=== PATIENT | male | born 1990 | race African-American/Black ===

== ENCOUNTER 2019-09-16 23:39 | Inpatient (IN) | payer MEDICAID, OTHER ==
[~2019-09-16] VITALS: Ht 188 cm; Wt 93.9 kg
[2019-09-16 23:54] LABS: BASOPHILS % (AUTO) 0.5 % (0.0-2.0); EOSINOPHILS % (AUTO) 0.8 % (1.0-6.0); HEMATOCRIT 41.7 % (41-53); HEMOGLOBIN 13.5 g/dL (13.5-17.5); LYMPHOCYTES # (AUTO) 3.6 K/uL (1.0-4.8); LYMPHOCYTES % (AUTO) 24.7 % (22.0-44.0); MEAN CORPUSCULAR HEMOGLOBIN 31.2 pg (26.0-34.0); MEAN CORPUSCULAR HGB CONC 32.3 G/dL (31.0-37.0); MEAN CORPUSCULAR VOLUME 97 fL (80-100); MONOCYTES # (AUTO) 1.2 K/uL (0.1-1.0); MONOCYTES % (AUTO) 8.3 % (2.0-9.0); NEUTROPHILS # (AUTO) 9.6 K/uL (1.8-7.7); NEUTROPHILS % (AUTO) 65.7 % (40.0-70.0); PLATELET COUNT (AUTO) 318 K/uL (150-450); RED BLOOD CELL COUNT(AUTO) 4.32 MIL/uL (4.50-5.90); RED CELL DISTRIBUTION WIDTH 15.6 % (11.5-14.5)
[2019-09-17 00:04] LABS: ANION GAP 7 mmol/L (8-16); CALCIUM, TOTAL 8.9 mg/dL (8.8-10.5); CARBON DIOXIDE 26 mmol/L (22-29); CHLORIDE 107 mmol/L (98-107); CREATININE 0.82 mg/dL (0.60-1.30); GLOMERULAR FILTR. RATE CALC > 60 mL/min (>60); GLUCOSE,RANDOM 117 mg/dL (70-110); POTASSIUM 4.3 mmol/L (3.5-5.1); SODIUM SERUM 140 mmol/L (136-145); UREA NITROGEN, BLOOD 16 mg/dL (7-18)
[2019-09-17 00:10] LABS: ALANINE AMINOTRANSFERASE 22 U/L (12-78); ALBUMIN 3.7 g/dL (3.4-5.0); ALKALINE PHOSPHATASE 64 U/L (46-116); ASPARTATE AMINOTRANSFERASE 12 U/L (15-37); BILIRUBIN,TOTAL 0.2 mg/dL (0.1-1.0); TOTAL PROTEIN, SERUM 7.6 g/dL (6.4-8.2)
[2019-09-17 01:15] LABS: AMPHET/METH SCREEN,URINE NEGATIVE (NEGATIVE); BARBITURATE SCREEN, URINE NEGATIVE (NEGATIVE); BENZODIAZEPINES SCREEN,URINE NEGATIVE (NEGATIVE); CANNABINOID SCREEN,URINE POSITIVE (NEGATIVE); COCAINE SCREEN,URINE NEGATIVE (NEGATIVE); METHADONE SCREEN, URINE NEGATIVE (NEGATIVE); OPIATE SCREEN,URINE NEGATIVE (NEGATIVE)
[2019-09-17 01:17] LABS: PHENCYCLIDINE SCREEN,URINE NEGATIVE (NEGATIVE)
[2019-09-17 04:17] VITALS: BP 101/65
[2019-09-17 05:20] VITALS: BP 101/65
[2019-09-17] MEDS ORDERED: NICOTINE 14 MG/24 HOUR PATCH TD SCH (09:00)
[2019-09-17 09:18] VITALS: BP 116/47
[2019-09-17] MEDS ORDERED: ONDANSETRON HCL 4 MG TABLET PO PRN (10:30)
[2019-09-17] MEDS ORDERED: ALBUTEROL SULFATE HFA 90 MCG/PUFF 8 GM INHALER IH PRN (10:30)
[2019-09-17] MEDS ORDERED: PETROLATUM,WHITE 28 GM JELLY TP PRN (10:30)
[2019-09-17] MEDS ORDERED: MAG HYDROX/AL HYDROX/SIMETH ES 30 ML SUSPENSION UDCUP PO PRN (10:30)
[2019-09-17] MEDS ORDERED: DOCUSATE SODIUM 100 MG CAPSULE PO PRN (10:30)
[2019-09-17] MEDS ORDERED: CloNIDine HCL 0.1 MG TABLET PO PRN (10:30)
[2019-09-17] MEDS ORDERED: MAGNESIUM HYDROXIDE SUSPENSION 30 ML UDCUP PO PRN (10:30)
[2019-09-17] MEDS ORDERED: ACETAMINOPHEN 325 MG TABLET PO PRN (10:30)
[2019-09-17] MEDS ORDERED: GuaiFENesin/D-METHORPHAN [SUGAR-FREE] 200-20MG/10 ML SYRUP UDCUP PO PRN (10:30)
[2019-09-17] MEDS ORDERED: IBUPROFEN 400 MG TABLET PO PRN (10:30)
[2019-09-17] MEDS ORDERED: LOPERAMIDE HCL 2 MG CAPSULE PO PRN (10:30)
[2019-09-17] MEDS: RisperiDONE 1 MG TABLET PO SCH (12:26)
[2019-09-17] MEDS: SERTRALINE HCL 50 MG TABLET PO SCH (12:26)
[2019-09-17] MEDS: NICOTINE 14 MG/24 HOUR PATCH TD PRN (15:59)
[2019-09-17 16:38] VITALS: BP 114/78
[2019-09-17] MEDS: LORazepam 2 MG TABLET PO PRN ×2 (17:14→23:57)
[2019-09-17] MEDS: HALOPERIDOL 5 MG TABLET PO PRN (19:27)
[2019-09-17] MEDS ORDERED: LORazepam 2 MG/ML VIAL IM ONE (20:00)
[2019-09-17] MEDS ORDERED: DiphenhydrAMINE HCL 50 MG/ML VIAL IM ONE (20:00)
[2019-09-17] MEDS: ZOLPIDEM TARTRATE 10 MG TABLET PO PRN (21:27)
[2019-09-18 04:05] VITALS: BP 114/70
[2019-09-18] MEDS ORDERED: PNEUMOCOCCAL VACCINE POLYVALENT 0.5 ML VIAL [PPSV23] IM ONE (04:45)
[2019-09-18] MEDS: SERTRALINE HCL 50 MG TABLET PO SCH (09:05)
[2019-09-18] MEDS: RisperiDONE 1 MG TABLET PO SCH (09:05)
[2019-09-18] MEDS: HALOPERIDOL 5 MG TABLET PO PRN ×3 (09:07→23:26)
[2019-09-18] MEDS: LORazepam 2 MG TABLET PO PRN ×3 (09:07→23:26)
[2019-09-18 09:13] VITALS: BP 137/81
[2019-09-18 09:39] LABS: CHOL/HDL RATIO 1.9 (4.2-7.3)
[2019-09-18] MEDS ORDERED: LORazepam 2 MG/ML VIAL ONE (13:53)
[2019-09-18] MEDS ORDERED: DiphenhydrAMINE HCL 50 MG/ML VIAL ONE (13:53)
[2019-09-18] MEDS ORDERED: HALOPERIDOL LACTATE 5 MG/ML VIAL ONE (13:53)
[2019-09-18] MEDS ORDERED: HALOPERIDOL LACTATE 5 MG/ML VIAL IM ONE (14:00)
[2019-09-18] MEDS ORDERED: LORazepam 2 MG/ML VIAL IM ONE (14:00)
[2019-09-18] MEDS ORDERED: DiphenhydrAMINE HCL 50 MG/ML VIAL IM ONE (14:00)
[2019-09-18] MEDS: NICOTINE 14 MG/24 HOUR PATCH TD PRN (15:01)
[2019-09-18 16:19] VITALS: BP 132/79
[2019-09-18] MEDS: ZOLPIDEM TARTRATE 10 MG TABLET PO PRN (20:36)
[2019-09-19 00:15] VITALS: BP 128/82
[2019-09-19] MEDS: RisperiDONE 1 MG TABLET PO SCH (08:38)
[2019-09-19] MEDS: SERTRALINE HCL 50 MG TABLET PO SCH (08:38)
[2019-09-19 09:31] VITALS: BP 148/72
[2019-09-19 10:09] LABS: BASOPHILS % (AUTO) 0.3 % (0.0-2.0); EOSINOPHILS % (AUTO) 1.7 % (1.0-6.0); HEMATOCRIT 40.3 % (41-53); HEMOGLOBIN 13.4 g/dL (13.5-17.5); LYMPHOCYTES # (AUTO) 2.4 K/uL (1.0-4.8); LYMPHOCYTES % (AUTO) 24.4 % (22.0-44.0); MEAN CORPUSCULAR HEMOGLOBIN 31.4 pg (26.0-34.0); MEAN CORPUSCULAR HGB CONC 33.2 G/dL (31.0-37.0); MEAN CORPUSCULAR VOLUME 95 fL (80-100); MONOCYTES # (AUTO) 0.9 K/uL (0.1-1.0); MONOCYTES % (AUTO) 9.3 % (2.0-9.0); NEUTROPHILS # (AUTO) 6.4 K/uL (1.8-7.7); NEUTROPHILS % (AUTO) 64.3 % (40.0-70.0); PLATELET COUNT (AUTO) 281 K/uL (150-450); RED BLOOD CELL COUNT(AUTO) 4.26 MIL/uL (4.50-5.90); RED CELL DISTRIBUTION WIDTH 14.7 % (11.5-14.5)
[2019-09-19] MEDS: HALOPERIDOL 5 MG TABLET PO PRN (13:11)
[2019-09-19] MEDS: LORazepam 2 MG TABLET PO PRN (13:11)
[2019-09-19 16:00] VITALS: BP 119/65
[2019-09-19] MEDS ORDERED: LORazepam 2 MG/ML VIAL IM ONE (18:45)
[2019-09-19] MEDS ORDERED: DiphenhydrAMINE HCL 50 MG/ML VIAL IM ONE (18:45)
[2019-09-19] MEDS ORDERED: HALOPERIDOL LACTATE 5 MG/ML VIAL IM ONE (18:45)
[2019-09-20] MEDS: SERTRALINE HCL 50 MG TABLET PO SCH (08:31)
[2019-09-20] MEDS: RisperiDONE 1 MG TABLET PO SCH (08:31)
[2019-09-20 08:44] VITALS: BP 106/63
[2019-09-20] MEDS ORDERED: LORazepam 2 MG/ML VIAL IM ONE (12:30)
[2019-09-20] MEDS ORDERED: HALOPERIDOL LACTATE 5 MG/ML VIAL IM ONE (12:30)
[2019-09-20] MEDS ORDERED: DiphenhydrAMINE HCL 50 MG/ML VIAL IM ONE (12:30)
[2019-09-20 16:27] VITALS: BP 119/67
[2019-09-20] MEDS: ZOLPIDEM TARTRATE 10 MG TABLET PO PRN (21:32)
[2019-09-20] MEDS: LORazepam 2 MG TABLET PO PRN (23:28)
[2019-09-20] MEDS: HALOPERIDOL 5 MG TABLET PO PRN (23:28)
[2019-09-21 00:33] VITALS: BP 122/69
[2019-09-21] MEDS: LORazepam 2 MG TABLET PO PRN ×3 (08:00→17:46)
[2019-09-21] MEDS: SERTRALINE HCL 50 MG TABLET PO SCH (08:00)
[2019-09-21] MEDS: RisperiDONE 1 MG TABLET PO SCH (08:00)
[2019-09-21 09:36] VITALS: BP 128/69
[2019-09-21] MEDS: HALOPERIDOL 5 MG TABLET PO PRN ×2 (12:15→17:46)
[2019-09-21] MEDS: NICOTINE 14 MG/24 HOUR PATCH TD PRN (12:17)
[2019-09-21 16:31] VITALS: BP 123/82
[2019-09-21] MEDS: ZOLPIDEM TARTRATE 10 MG TABLET PO PRN (21:02)
[2019-09-22] MEDS: SERTRALINE HCL 50 MG TABLET PO SCH (08:18)
[2019-09-22] MEDS: RisperiDONE 1 MG TABLET PO SCH (08:18)
[2019-09-22 08:26] VITALS: BP 108/60
[2019-09-22] MEDS: LORazepam 2 MG TABLET PO PRN ×2 (11:51→18:29)
[2019-09-22] MEDS: FLUoxetine HCL 20 MG CAPSULE PO SCH (11:51)
[2019-09-22] MEDS: HALOPERIDOL 5 MG TABLET PO PRN ×2 (11:51→18:29)
[2019-09-22] MEDS: NICOTINE 14 MG/24 HOUR PATCH TD PRN (13:05)
[2019-09-22] MEDS: ZOLPIDEM TARTRATE 10 MG TABLET PO PRN (20:29)
[2019-09-22 21:54] VITALS: BP 115/65
[2019-09-23 00:04] VITALS: BP 124/71
[2019-09-23] MEDS: LORazepam 2 MG TABLET PO PRN ×3 (00:05→16:33)
[2019-09-23] MEDS: RisperiDONE 1 MG TABLET PO SCH (09:37)
[2019-09-23] MEDS: FLUoxetine HCL 20 MG CAPSULE PO SCH (09:37)
[2019-09-23] MEDS: NICOTINE 14 MG/24 HOUR PATCH TD PRN (11:40)
[2019-09-23 16:34] VITALS: BP 132/69
[2019-09-23] MEDS: HALOPERIDOL 5 MG TABLET PO PRN (20:18)
[2019-09-23] MEDS: ZOLPIDEM TARTRATE 10 MG TABLET PO PRN (20:18)
[2019-09-24 08:14] VITALS: BP 102/52
[2019-09-24] MEDS: RisperiDONE 1 MG TABLET PO SCH (09:42)
[2019-09-24] MEDS: FLUoxetine HCL 20 MG CAPSULE PO SCH (09:42)
[2019-09-24] MEDS ORDERED: DiphenhydrAMINE HCL 50 MG/ML VIAL ONE (12:15)
[2019-09-24] MEDS ORDERED: LORazepam 2 MG/ML VIAL ONE (12:15)
[2019-09-24] MEDS ORDERED: DiphenhydrAMINE HCL 50 MG/ML VIAL IM ONE (12:30)
[2019-09-24] MEDS ORDERED: LORazepam 2 MG/ML VIAL IM ONE (12:30)
[2019-09-24] MEDS ORDERED: RISP.5 PO (14:58)
[2019-09-24] MEDS ORDERED: FLUO-191 PO (15:07)
[2019-09-24] MEDS: NICOTINE 14 MG/24 HOUR PATCH TD PRN (15:56)
[2019-09-24 16:38] VITALS: BP 141/76
[2019-09-24] MEDS ORDERED: RISP1 PO (18:55)
[2019-09-24] MEDS: LORazepam 2 MG TABLET PO PRN (20:04)
== END 2019-09-24 22:45 | disposition home or self-care (01) | DRG 885 ==
LOC: EMS 23:40 → 3EI 09-17 03:22 → 3EC 09-17 21:00 → UNDODISIN 09-24 09:55
PROVIDERS: ADMIT Psychiatry & Neurology Child & Adolescent Psychiatry; ATTEND Psychiatry & Neurology Child & Adolescent Psychiatry
DX: F20.9 Schizophrenia, unspecified (principal); R45.851 Suicidal ideations; J45.909 Unspecified asthma, uncomplicated; D72.829 Elevated white blood cell count, unspecified; F17.200 Nicotine dependence, unspecified, uncomplicated
CPT/HCPCS: 90732; G0480; J1200; J1630; J2060; J3230; J3535

== ENCOUNTER 2019-09-28 18:14 | Inpatient (IN) | payer MEDICAID, OTHER ==
[~2019-09-28] VITALS: Ht 188 cm; Wt 98.9 kg
[~2019-09-28 18:14] MED LIST: FLUO-191 PO; RISP1 PO
[2019-09-28] MEDS ORDERED: METH10 PO (20:09)
[2019-09-28 20:32] LABS: BASOPHILS % (AUTO) 0.6 % (0.0-2.0); EOSINOPHILS % (AUTO) 1.1 % (1.0-6.0); HEMATOCRIT 45.5 % (41-53); HEMOGLOBIN 14.5 g/dL (13.5-17.5); LYMPHOCYTES # (AUTO) 4.1 K/uL (1.0-4.8); LYMPHOCYTES % (AUTO) 26.5 % (22.0-44.0); MEAN CORPUSCULAR HEMOGLOBIN 30.8 pg (26.0-34.0); MEAN CORPUSCULAR HGB CONC 31.9 G/dL (31.0-37.0); MEAN CORPUSCULAR VOLUME 97 fL (80-100); MONOCYTES # (AUTO) 1.5 K/uL (0.1-1.0); MONOCYTES % (AUTO) 9.7 % (2.0-9.0); NEUTROPHILS # (AUTO) 9.5 K/uL (1.8-7.7); NEUTROPHILS % (AUTO) 62.1 % (40.0-70.0); PLATELET COUNT (AUTO) 337 K/uL (150-450); RED BLOOD CELL COUNT(AUTO) 4.71 MIL/uL (4.50-5.90); RED CELL DISTRIBUTION WIDTH 15.4 % (11.5-14.5)
[2019-09-28 20:47] LABS: ANION GAP 8 mmol/L (8-16); CALCIUM, TOTAL 9.4 mg/dL (8.8-10.5); CARBON DIOXIDE 26 mmol/L (22-29); CHLORIDE 103 mmol/L (98-107); CREATININE 0.91 mg/dL (0.60-1.30); GLOMERULAR FILTR. RATE CALC > 60 mL/min (>60); GLUCOSE,RANDOM 99 mg/dL (70-110); POTASSIUM 4.3 mmol/L (3.5-5.1); SODIUM SERUM 137 mmol/L (136-145); UREA NITROGEN, BLOOD 22 mg/dL (7-18)
[2019-09-28 20:52] LABS: ALANINE AMINOTRANSFERASE 54 U/L (12-78); ALBUMIN 3.9 g/dL (3.4-5.0); ALKALINE PHOSPHATASE 64 U/L (46-116); ASPARTATE AMINOTRANSFERASE 21 U/L (15-37); BILIRUBIN,TOTAL 0.2 mg/dL (0.1-1.0)
[2019-09-28] MEDS ORDERED: SODIUM CHLORIDE 0.9% 1,000 ML IV ONE (21:45)
[2019-09-28] MEDS ORDERED: MAGNESIUM HYDROXIDE SUSPENSION 30 ML UDCUP PO PRN (21:45)
[2019-09-28] MEDS ORDERED: LORazepam 2 MG/ML VIAL IVP PRN (21:45)
[2019-09-28] MEDS ORDERED: ACETAMINOPHEN 325 MG TABLET PO PRN (21:45)
[2019-09-29] MEDS: ZOLPIDEM TARTRATE 10 MG TABLET PO PRN ×2 (01:38→20:19)
[2019-09-29] MEDS: LORazepam 2 MG TABLET PO PRN ×4 (01:38→20:19)
[2019-09-29 01:46] VITALS: BP 136/82
[2019-09-29] MEDS ORDERED: PNEUMOCOCCAL VACCINE POLYVALENT 0.5 ML VIAL [PPSV23] IM ONE (02:30)
[2019-09-29 08:19] LABS: BASOPHILS % (AUTO) 0.4 % (0.0-2.0); EOSINOPHILS % (AUTO) 1.6 % (1.0-6.0); HEMATOCRIT 41.5 % (41-53); HEMOGLOBIN 13.7 g/dL (13.5-17.5); LYMPHOCYTES # (AUTO) 3.8 K/uL (1.0-4.8); LYMPHOCYTES % (AUTO) 32.7 % (22.0-44.0); MEAN CORPUSCULAR HEMOGLOBIN 31.8 pg (26.0-34.0); MEAN CORPUSCULAR HGB CONC 33.1 G/dL (31.0-37.0); MEAN CORPUSCULAR VOLUME 96 fL (80-100); MONOCYTES # (AUTO) 1.2 K/uL (0.1-1.0); NEUTROPHILS # (AUTO) 6.4 K/uL (1.8-7.7); NEUTROPHILS % (AUTO) 55.3 % (40.0-70.0); PLATELET COUNT (AUTO) 280 K/uL (150-450); RED BLOOD CELL COUNT(AUTO) 4.32 MIL/uL (4.50-5.90); RED CELL DISTRIBUTION WIDTH 15.1 % (11.5-14.5)
[2019-09-29 08:46] LABS: CHOL/HDL RATIO 2.1 (4.2-7.3)
[2019-09-29] MEDS: RisperiDONE 2 MG TABLET PO SCH (13:09)
[2019-09-29] MEDS: FLUoxetine HCL 20 MG CAPSULE PO SCH (13:09)
[2019-09-29] MEDS: HALOPERIDOL 5 MG TABLET PO PRN (16:19)
[2019-09-29] MEDS ORDERED: HALOPERIDOL LACTATE 5 MG/ML VIAL ONE (21:51)
[2019-09-29] MEDS ORDERED: DiphenhydrAMINE HCL 50 MG/ML VIAL ONE (21:51)
[2019-09-29] MEDS ORDERED: HALOPERIDOL LACTATE 5 MG/ML VIAL IM ONE (22:15)
[2019-09-29] MEDS ORDERED: LORazepam 2 MG/ML VIAL IM ONE (22:15)
[2019-09-29] MEDS ORDERED: DiphenhydrAMINE HCL 50 MG/ML VIAL IM ONE (22:15)
[2019-09-30] VITALS: BP 125/79
[2019-09-30] MEDS: FLUoxetine HCL 20 MG CAPSULE PO SCH (09:26)
[2019-09-30] MEDS: RisperiDONE 2 MG TABLET PO SCH (09:26)
[2019-09-30] MEDS: LORazepam 2 MG TABLET PO PRN ×2 (16:08→22:05)
[2019-09-30] MEDS: HALOPERIDOL 5 MG TABLET PO PRN (16:08)
[2019-09-30] MEDS ORDERED: HALOPERIDOL LACTATE 5 MG/ML VIAL ONE (18:42)
[2019-09-30] MEDS ORDERED: DiphenhydrAMINE HCL 50 MG/ML VIAL ONE (18:42)
[2019-09-30] MEDS ORDERED: HALOPERIDOL LACTATE 5 MG/ML VIAL IM ONE (18:45)
[2019-09-30] MEDS ORDERED: DiphenhydrAMINE HCL 50 MG/ML VIAL IM ONE (18:45)
[2019-09-30] MEDS: ZOLPIDEM TARTRATE 10 MG TABLET PO PRN (20:37)
[2019-10-01] MEDS: FLUoxetine HCL 20 MG CAPSULE PO SCH (08:58)
[2019-10-01] MEDS: RisperiDONE 2 MG TABLET PO SCH (08:59)
[2019-10-01] MEDS: LORazepam 2 MG TABLET PO PRN ×3 (08:59→20:59)
[2019-10-01] MEDS: HALOPERIDOL 5 MG TABLET PO PRN (16:40)
[2019-10-01 17:09] VITALS: BP 103/68
[2019-10-01] MEDS: ZOLPIDEM TARTRATE 10 MG TABLET PO PRN (21:47)
[2019-10-02 01:41] VITALS: BP 119/66
[2019-10-02] MEDS: LORazepam 2 MG TABLET PO PRN ×3 (08:42→20:55)
[2019-10-02] MEDS: FLUoxetine HCL 20 MG CAPSULE PO SCH (08:42)
[2019-10-02] MEDS: RisperiDONE 2 MG TABLET PO SCH (08:42)
[2019-10-02] MEDS: HALOPERIDOL 5 MG TABLET PO PRN (14:00)
[2019-10-02 16:20] VITALS: BP 132/59
[2019-10-02] MEDS: ZOLPIDEM TARTRATE 10 MG TABLET PO PRN (22:49)
[2019-10-03 06:02] VITALS: BP 103/58
[2019-10-03] MEDS: RisperiDONE 2 MG TABLET PO SCH (09:08)
[2019-10-03] MEDS: FLUoxetine HCL 20 MG CAPSULE PO SCH (09:08)
[2019-10-03] MEDS: LORazepam 2 MG TABLET PO PRN ×2 (12:52→19:14)
[2019-10-03 16:12] VITALS: BP 145/97
[2019-10-03] MEDS: HALOPERIDOL 5 MG TABLET PO PRN (19:14)
[2019-10-03] MEDS: ZOLPIDEM TARTRATE 10 MG TABLET PO PRN (20:28)
[2019-10-03] MEDS: TraZODone HCL 150 MG TABLET PO SCH (20:28)
[2019-10-04 00:30] VITALS: BP 134/72
[2019-10-04] MEDS: FLUoxetine HCL 20 MG CAPSULE PO SCH (08:33)
[2019-10-04] MEDS: RisperiDONE 2 MG TABLET PO SCH (08:33)
[2019-10-04] MEDS: LORazepam 2 MG TABLET PO PRN ×3 (08:33→21:25)
[2019-10-04 16:17] VITALS: BP 132/75
[2019-10-04] MEDS: TraZODone HCL 150 MG TABLET PO SCH (21:24)
[2019-10-04] MEDS: HALOPERIDOL 5 MG TABLET PO PRN (21:24)
[2019-10-04] MEDS: ZOLPIDEM TARTRATE 10 MG TABLET PO PRN (21:25)
[2019-10-05 05:56] VITALS: BP 103/65
[2019-10-05 08:07] VITALS: BP 107/61
[2019-10-05] MEDS: FLUoxetine HCL 20 MG CAPSULE PO SCH (09:30)
[2019-10-05] MEDS: RisperiDONE 2 MG TABLET PO SCH (09:30)
[2019-10-05] MEDS: LORazepam 2 MG TABLET PO PRN ×3 (12:27→21:06)
[2019-10-05 16:42] VITALS: BP 100/60
[2019-10-05] MEDS: HALOPERIDOL 5 MG TABLET PO PRN ×2 (16:50→21:06)
[2019-10-05] MEDS: ZOLPIDEM TARTRATE 10 MG TABLET PO PRN (21:06)
[2019-10-05] MEDS: TraZODone HCL 150 MG TABLET PO SCH (21:06)
[2019-10-06] MEDS: LORazepam 2 MG TABLET PO PRN ×3 (09:09→17:10)
[2019-10-06] MEDS: FLUoxetine HCL 20 MG CAPSULE PO SCH (09:09)
[2019-10-06] MEDS: RisperiDONE 2 MG TABLET PO SCH (09:09)
[2019-10-06 16:11] VITALS: BP 111/67
[2019-10-06] MEDS ORDERED: TRAZ150 PO (16:30)
[2019-10-06] MEDS ORDERED: FLUO-191 PO (16:30)
[2019-10-06] MEDS ORDERED: RISP2 PO (16:30)
[2019-10-06] MEDS: TraZODone HCL 150 MG TABLET PO SCH (21:19)
[2019-10-07] MEDS: HALOPERIDOL 5 MG TABLET PO PRN (00:09)
[2019-10-07] MEDS: LORazepam 2 MG TABLET PO PRN (00:09)
[2019-10-07] MEDS: ZOLPIDEM TARTRATE 10 MG TABLET PO PRN (00:10)
[2019-10-07] MEDS: FLUoxetine HCL 20 MG CAPSULE PO SCH (08:45)
[2019-10-07] MEDS: RisperiDONE 2 MG TABLET PO SCH (08:45)
[2019-10-07 08:49] VITALS: BP 126/85
== END 2019-10-07 08:30 | disposition home or self-care (01) | DRG 750 ==
LOC: EMS 18:14 → B3A 21:40
PROVIDERS: ADMIT Psychiatry & Neurology Child & Adolescent Psychiatry; ATTEND Psychiatry & Neurology Child & Adolescent Psychiatry
DX: F25.1 Schizoaffective disorder, depressive type (principal); R45.851 Suicidal ideations; Z59.0 Homelessness; F10.10 Alcohol abuse, uncomplicated; Z71.41 Alcohol abuse counseling and surveillance of alcoholic; F31.9 Bipolar disorder, unspecified; G44.209 Tension-type headache, unspecified, not intractable; J45.909 Unspecified asthma, uncomplicated; Z87.891 Personal history of nicotine dependence; Z91.14 Patient's other noncompliance with medication regimen; Z03.818 Encounter for observation for suspected exposure to other biological agents ruled out
CPT/HCPCS: 87081; G0480; J1200; J1630; J2060; J7030